=== PATIENT | male | born 1960 ===

== ENCOUNTER 2021-04-26 14:19 | Observation (INO) | payer MEDICAID ==
--- NOTE | 2021-04-26 16:16 | Emergency Department Report ---
ED Chest Pain HPI - General Chief Complaint: Chest Pain Stated Complaint: CHEST PAIN Time Seen by Provider: 04/26/21 16:03 Source: patient Mode of arrival: Wheelchair Limitations: No Limitations - History of Present Illness Initial Comments: 60-year-old male presents to the emergency department from home with a complaint of a 1 day history of midsternal to left-sided chest pain, shortness of breath and generalized weakness. He has a past medical history that includes hypertension, CHF, diabetes, coronary artery disease with questionable PA, previous PE no longer on anticoagulation. Patient is a tobacco smoker but denies any illicit drug use or alcohol abuse/dependence. He has not taken anything for symptoms prior to presentation. He rates his pain at a 10 out of 10 in intensity. No known aggravating or alleviating factors. No recent travel or sick contacts at home. - Related Data Allergies Allergy/AdvReac Type Severity Reaction Status Date / Time No Known Allergies Allergy Unverified 04/26/21 14:34 Heart Score - HEART Score History: Slightly suspicious EKG: Non-specific Age: 45-65 Risk factors: > 3 risk factors or hx of atherosclerotic disease Troponin: < normal limit HEART Score: 4 - EKG Read Time Time EKG Completed: 16:13 EKG Read Time: 16:14 ED Review of Systems ROS: Stated complaint: CHEST PAIN Other details as noted in HPI Comment: All other systems reviewed and negative Constitutional: weakness. denies: chills, fever Eyes: denies: eye pain, vision change ENT: denies: ear pain, throat pain Respiratory: shortness of breath. denies: orthopnea Cardiovascular: chest pain. denies: edema Gastrointestinal: denies: abdominal pain, vomiting Genitourinary: denies: dysuria, discharge Musculoskeletal: denies: back pain, joint swelling Skin: denies: rash, lesions Neurological: denies: headache, numbness ED Physical Exam - General Limitations: No Limitations - Other Other exam information: GENERAL: The patient is well-developed well-nourished. HENT: Normocephalic. Atraumatic. Patient has moist mucous membranes. EYES: Extraocular motions are intact. NECK: Supple. Trachea is midline. CHEST/LUNGS: Clear to auscultation. There is no respiratory distress noted. HEART/CARDIOVASCULAR: Regular. There is no tachycardia. There is no murmur. ABDOMEN: Abdomen is soft, nontender. Patient has normal bowel sounds. There is no abdominal distention. SKIN: Skin is warm and dry. NEURO: The patient is awake, alert, and oriented. The patient is cooperative. The patient has no focal neurologic deficits. Normal speech. MUSCULOSKELETAL: There is no tenderness or deformity. There is no limitation range of motion. ED Course Vital Signs 04/26/21 04/26/21 17:41 20:57 Temperature 68.2 F L 98.5 F Pulse Rate 108 H 95 H Respiratory 16 18 Rate Blood Pressure 172/84 156/108 O2 Sat by Pulse 94 95 Oximetry DENISE score - Denise Score Age > 65: (0) No Aspirin use within the Past 7 Days: (0) No 3 or more CAD Risk Factors: (1) Yes 2 or more Angina events in past 24 hrs: (1) Yes Known CAD with more than 50% Stenosis: (0) No Elevated Cardiac Markers: (0) No ST Deviation Greater than 0.5mm: (0) No DENISE Score: 2 ED Medical Decision Making - Lab Data Result diagrams: 04/26/21 16:45 04/26/21 16:45 Lab Results 04/26/21 04/26/21 04/26/21 Range/Units 16:45 16:45 16:45 WBC 6.5 (4.5-11.0) K/mm3 RBC 5.68 H (3.65-5.03) M/mm3 Hgb 15.0 (11.8-15.2) gm/dl Hct 47.4 H (35.5-45.6) % MCV 83 L (84-94) fl MCH 26 L (28-32) pg MCHC 32 (32-34) % RDW 15.0 (13.2-15.2) % Plt Count 206 (140-440) K/mm3 Lymph % (Auto) 21.1 (13.4-35.0) % [place] % (Auto) 13.1 H (0.0-7.3) % Eos % (Auto) 0.8 (0.0-4.3) % Baso % (Auto) 0.5 (0.0-1.8) % Lymph # (Auto) 1.4 (1.2-5.4) K/mm3 [place] # (Auto) 0.8 (0.0-0.8) K/mm3 Eos # (Auto) 0.0 (0.0-0.4) K/mm3 Baso # (Auto) 0.0 (0.0-0.1) K/mm3 Seg Neutrophils % 64.5 (40.0-70.0) % Seg Neutrophils # 4.2 (1.8-7.7) K/mm3 D-Dimer 331.86 H (0-234) ng/mlDDU Sodium 134 L (137-145) mmol/L Potassium 4.5 (3.6-5.0) mmol/L Chloride 93.6 L (98-107) mmol/L Carbon Dioxide 23 (22-30) mmol/L Anion Gap 22 mmol/L BUN 11 (9-20) mg/dL Creatinine 0.7 L (0.8-1.3) mg/dL Estimated GFR > 60 ml/min BUN/Creatinine Ratio 16 % Glucose 325 H (75-100) mg/dL Calcium 8.9 (8.4-10.2) mg/dL Total Bilirubin 0.70 (0.1-1.2) mg/dL AST 26 (5-40) units/L ALT 18 (7-56) units/L Alkaline Phosphatase 161 H (35-129) units/L Troponin T < 0.010 (0.00-0.029) ng/mL NT-Pro-B Natriuret Pep 127.2 (0-900) pg/mL Total Protein 7.5 (6.3-8.2) g/dL Albumin 3.8 L (3.9-5) g/dL Albumin/Globulin Ratio 1.0 % 04/26/21 Range/Units 19:25 WBC (4.5-11.0) K/mm3 RBC (3.65-5.03) M/mm3 Hgb (11.8-15.2) gm/dl Hct (35.5-45.6) % MCV (84-94) fl MCH (28-32) pg MCHC (32-34) % RDW (13.2-15.2) % Plt Count (140-440) K/mm3 Lymph % (Auto) (13.4-35.0) % [place] % (Auto) (0.0-7.3) % Eos % (Auto) (0.0-4.3) % Baso % (Auto) (0.0-1.8) % Lymph # (Auto) (1.2-5.4) K/mm3 [place] # (Auto) (0.0-0.8) K/mm3 Eos # (Auto) (0.0-0.4) K/mm3 Baso # (Auto) (0.0-0.1) K/mm3 Seg Neutrophils % (40.0-70.0) % Seg Neutrophils # (1.8-7.7) K/mm3 D-Dimer (0-234) ng/mlDDU Sodium (137-145) mmol/L Potassium (3.6-5.0) mmol/L Chloride (98-107) mmol/L Carbon Dioxide (22-30) mmol/L Anion Gap mmol/L BUN (9-20) mg/dL Creatinine (0.8-1.3) mg/dL Estimated GFR ml/min BUN/Creatinine Ratio % Glucose (75-100) mg/dL Calcium (8.4-10.2) mg/dL Total Bilirubin (0.1-1.2) mg/dL AST (5-40) units/L ALT (7-56) units/L Alkaline Phosphatase (35-129) units/L Troponin T < 0.010 (0.00-0.029) ng/mL NT-Pro-B Natriuret Pep (0-900) pg/mL Total Protein (6.3-8.2) g/dL Albumin (3.9-5) g/dL Albumin/Globulin Ratio % - EKG Data -: EKG Interpreted by Sc EKG shows normal: sinus rhythm, axis, intervals, QRS complexes, ST-T waves (Inverted T waves to the lateral leads) Rate: tachycardia (110 bpm) - EKG Data When compared to previous EKG there are: previous EKG unavailable Interpretation: other (Sinus tachycardia 110 bpm, normal axis, normal intervals, T wave inversion to the lateral leads. No ST elevation PA) - Radiology Data Radiology results: report reviewed CHEST 2 VIEWS INDICATION / CLINICAL INFORMATION: CP STUDY TIME: 1727 COMPARISON: None available. FINDINGS: SUPPORT DEVICES: None. HEART / MEDIASTINUM: No significant abnormality. LUNGS / PLEURA: No significant acute pulmonary or pleural abnormality. No pneumothorax. ADDITIONAL FINDINGS: No significant additional findings. CTA CHEST WITH IV CONTRAST INDICATION: CP, elevated dimer. TECHNIQUE: Axial CT images were obtained through the chest after injection of IV contrast. 3 plane MIP reconstructions were produced. All CT scans at this location are performed using CT dose reduction for ALARA by means of automated exposure control. COMPARISON: None available. FINDINGS: Pulmonary Arteries: No pulmonary emboli. Thoracic Aorta: No acute abnormality. Heart: Normal. Lungs: No acute air space or interstitial disease. Pleura: No pleural effusion. No pneumothorax. Lymph Nodes: No significant adenopathy. Additional Findings: None. Upper Abdomen: On the inferior most axial image there is subtle ill-defined hypodensity in the anterior right lobe of the liver measuring 3.6 cm. This may be an area of focal fat deposition but is incompletely included on this exam. Skeletal Structures: No significant osseous abnormality. IMPRESSION: 1. No CT evidence for pulmonary embolism. 2. No acute findings. - Medical Decision Making This patient presents with acute chest pain, shortness of breath, generalized weakness that started this morning. Heart and lung sounds are normal to auscultation and the patient does not appear in any respiratory distress. EKG does not show any morphology consistent with ST elevation myocardial infarction. Chest x-ray does not show any pneumonia, pleural effusions, pneumothorax, widened mediastinum, or any other acute process. Patient's labs have been mostly unremarkable thus far including CBC, metabolic panel, negative troponin, but the patient did have a slightly elevated and equivocal D-dimer level. For this reason he had a CT angiography of the chest that does not show any pulmonary embolism, dissection, or any other acute process. The patient has a moderate heart score of 4. For this reason the patient will be admitted to the hospital for further evaluation and treatment and was accepted for admission by the hospitalist, Dr. Stearns. Critical Care Time: No Critical care attestation.: If time is entered above; I have spent that time in minutes in the direct care of this critically ill patient, excluding procedure time. ED Disposition Clinical Impression: Acute chest pain, Hyperglycemia Hypertension Qualifiers: Hypertension type: primary hypertension Qualified Code(s): I10 - Essential (primary) hypertension Disposition: ADMITTED INPATIENT Is pt being admited?: Yes Condition: Serious Instructions: Chest Pain (ED), Hypertension (ED) Time of Disposition: 18:00
[2021-04-26 17:23] LABS: Alanine Aminotransferase 18 units/L (7-56); Albumin 3.8 g/dL (3.9-5); Blood Urea Nitrogen 11 mg/dL (9-20); Calcium 8.9 mg/dL (8.4-10.2); Hemolysis Index 29
[2021-04-26 17:27] LABS: BUN/Creatinine Ratio 16
[2021-04-26 17:32] LABS: Basophils % (Auto) 0.5 % (0.0-1.8); Eosinophils % (Auto) 0.8 % (0.0-4.3); Hematocrit 47.4 % (35.5-45.6); Lymphocytes # (Auto) 1.4 K/mm3 (1.2-5.4); Lymphocytes % (Auto) 21.1 % (13.4-35.0); Mean Corpuscular HGB Conc 32 % (32-34); Mean Corpuscular Volume 83 fl (84-94); Monocytes # (Auto) 0.8 K/mm3 (0.0-0.8); Monocytes % (Auto) 13.1 % (0.0-7.3); Platelet Count 206 K/mm3 (140-440); Red Blood Count 5.68 M/mm3 (3.65-5.03)
[2021-04-26] MEDS ORDERED: MORPHINE 4 MG/1 ML INJ IV ONE (17:55)
[2021-04-26] MEDS ORDERED: ONDANSETRON 4 MG/2 ML INJ IV ONE (17:56)
[2021-04-26] MEDS ORDERED: INSULIN REGULAR, HUMAN 100 UNITS/1 ML IV ONE (17:59)
[2021-04-26] MEDS ORDERED: ASPIRIN 81 MG TAB CHEW PO ONE (17:59)
--- NOTE | 2021-04-26 18:11 | XRay Report ---
CHEST 2 VIEWS INDICATION / CLINICAL INFORMATION: CP STUDY TIME: 1727 COMPARISON: None available. FINDINGS: SUPPORT DEVICES: None. HEART / MEDIASTINUM: No significant abnormality. LUNGS / PLEURA: No significant acute pulmonary or pleural abnormality. No pneumothorax. ADDITIONAL FINDINGS: No significant additional findings. Signer Name: Tristan Rothman MD Signed: 04/26/2021 6:06 PM Workstation Name: [id number]
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
[2021-04-26] MEDS ORDERED: ACETAMINOPHEN 325 MG TAB PO PRN (19:06)
[2021-04-26] MEDS ORDERED: ONDANSETRON 4 MG/2 ML INJ IV PRN (19:06)
--- NOTE | 2021-04-26 19:19 | Cat Scan Report ---
CTA CHEST WITH IV CONTRAST INDICATION: CP, elevated dimer. TECHNIQUE: Axial CT images were obtained through the chest after injection of IV contrast. 3 plane MIP reconstru ctions were produced. All CT scans at this location are performed using CT dose reduction for ALARA b y means of automated exposure control. COMPARISON: None available. FINDINGS: Pulmonary Arteries: No pulmonary emboli. Thoracic Aorta: No acute abnormality. Heart: Normal. Lungs: No acute air space or interstitial disease. Pleura: No pleural effusion. No pneumothorax. Lymph Nodes: No significant adenopathy. Additional Findings: None. Upper Abdomen: On the inferior most axial image there is subtle ill-defined hypodensity in the anteri or right lobe of the liver measuring 3.6 cm. This may be an area of focal fat deposition but is incom pletely included on this exam. Skeletal Structures: No significant osseous abnormality. IMPRESSION: 1. No CT evidence for pulmonary embolism. 2. No acute findings. Signer Name: Adi Pinedo MD Signed: 04/26/2021 7:14 PM Workstation Name: [id number]
[2021-04-26] MEDS ORDERED: oxyCODONE /ACETAMINOPHEN 5-325MG TAB PO PRN (19:33)
[2021-04-26] MEDS ORDERED: MORPHINE 2 MG/1 ML INJ IV PRN (19:33)
[2021-04-26] MEDS ORDERED: SODIUM CHLORIDE 0.9% 1000 ML 1,000 ML IV SCH (19:45)
[2021-04-26] MEDS: HEPARIN 5,000 UNIT/1 ML VIAL SUB-Q SCH (22:30)
[2021-04-26] MEDS ORDERED: DEXTROSE 50% IN WATER (25GM) 50 ML SYRINGE IV PRN (23:48)
[2021-04-26] MEDS ORDERED: hydrALAZINE 20 MG/1 ML INJ IV PRN (23:51)
[2021-04-26] MEDS ORDERED: DEXTROSE 10% *Hypoglycemia IV PRN (23:56)
[2021-04-27] MEDS: INSULIN LISPRO 100 UNIT/ML SUB-Q SCH ×4 (00:50→17:11)
[2021-04-27 05:27] LABS: Alanine Aminotransferase 16 units/L (7-56); Albumin 3.6 g/dL (3.9-5); BUN/Creatinine Ratio 16; Blood Urea Nitrogen 13 mg/dL (9-20); Calcium 8.8 mg/dL (8.4-10.2); Hemolysis Index 6
[2021-04-27] MEDS ORDERED: REGADENOSON 0.4 MG/5 ML INJ IV ONE (07:31)
--- NOTE | 2021-04-27 11:12 | Nuclear Medicine Report ---
APPROVED REPORT Exam: Nuclear Stress Test Indication: Chest pain BMI: 0 Stress Test Details HR Max Heart Rate (APMHR): 159 bpm Target HR (85% APMHR): 135 bpm BP ECG Resting ECG: Sinus Rhythm,non specific T wavechanges. Stress ECG: Sinus Rhythm ST Change: None Arrhythmia: None Recovery ECG: Sinus Rhythm Recovery ST Change: None Recovery Arrhythmia: None Clinical Reason for Termination: Completed protocol Stress Symptoms: None NM EXAM: Myocardial Perfusion REST/STRESS Imaging Protocol: Rest Tc-99m/Stress Tc-99m 1 day Resting Data Rest SPECT myocardial perfusion imaging was performed in supine position 45 minutes following the intravenous injection of 10 mCi of Tc-99m Myoview. Time of rest injection: 0700 Pharmacologic Stress Pharmacologic stress test was performed by injecting Regadenoson 0.4 mg IV push followed by the intravenous injection of 28 mCi of Tc-99m Myoview. Time of stress injection: 0925 Gated Stress SPECT was performed 30 minutes after stress injection. The images were gated to evaluate regional wall motion and calculate left ventricular ejection fraction. Study Quality Study: excellent Lung Uptake: Normal Study Data TID = 1.00. Perfusion Wall Motion The rest and stress images show normal left ventricular wall motion.Post stress LVEF was calculated lauren 69%.No wall motion abnormalities noted.Normal left ventricular size and function with no regional wall motion abnormalities. Nuclear Conclusion ECG Findings: negative for ischemia Clinical Findings: negative for ischemia Nuclear Findings: negative for ischemia Exercise Capacity: not assessed Left Ventricular Function: normal Risk Study: low Normal study. No scintigraphic evidence for myocardial ischemia or scar.
--- NOTE | 2021-04-27 11:39 | Electrocardiograph Report ---
[facility] Test Date: 2021-04-26 Test Time: 16:13:14 Pat Name: DAVONTE PATTON Department: Room: A458 1 Gender: M Song Lyricist: DEONDRE : 1960 Requested By: CLOTILDE LEWIS Order Number: [id number] Reading MD: Gerber Chapin Measurements Intervals [place] Rate: 110 P: 49 [place]: 158 QRS: 8 QRSD: 77 T: 104 QT: 333 QTc: 451 Interpretive Statements Sinus tachycardia Abnormal T, consider ischemia, lateral leads No previous ECG available for comparison Electronically Signed On 04-27-2021 11:39:49 EST by Gerber Chapin
[2021-04-27] MEDS: HEPARIN 5,000 UNIT/1 ML VIAL SUB-Q SCH (13:11)
--- NOTE | 2021-04-27 15:34 | Discharge Summary ---
Providers - Providers Date of Admission: 04/26/21 18:00 Date of discharge: 04/27/21 Attending physician: ELIZABETH VAUGHN 04/26/21 23:48 Consult to Dietitian/Nutrition [CONS] Routine Physician Instructions: Reason For Exam: Reason for Consult: Diet education Primary care physician: RESEARCH KENNEL SUPERVISOR Hospitalization Condition: Serious Hospital course: 60-year-old male with history of hypertension, type II DM diabetes, COPD and on home oxygen to 3 L comes in for left-sided chest pain of 3 days duration. Also lower extremity pain. Patient stated he has history of CHF. And history of coronary artery disease. Patient is a poor historian. Patient has clinical nasal cannula oxygen. Patient smokes over a pack a day. Alcohol occasionally. Did not take any medications prior to coming here. Not taking any medications very noncompliant. Assessment and Plan Advance Directives: Yes (Full code) VTE prophylaxis?: Chemical Plan of care discussed with patient/family: Yes - Patient Problems (1) Acute coronary syndrome Current Visit: Yes Status: Acute Plan to address problem: Stress test was negative (2) Hypertension Current Visit: Yes Status: Chronic Qualifiers: Hypertension type: primary hypertension Qualified Code(s): I10 - Essential (primary) hypertension Plan to address problem: We will have a comfortable tonsils Adjust medications (3) Chronic respiratory failure Current Visit: Yes Status: Chronic Qualifiers: Respiratory failure complication: hypoxia Qualified Code(s): J96.11 - Chronic respiratory failure with hypoxia Plan to address problem: Patient on 3 L nasal cannula oxygen at home (4) DVT prophylaxis Current Visit: Yes Status: Acute (5) Type 2 diabetes mellitus Current Visit: Yes Status: Chronic Qualifiers: Diabetes mellitus termite control technician insulin use: unspecified termite control technician insulin use status Plan to address problem: Continue home medications Coverage Check hemoglobin A1c (6) COPD (chronic obstructive pulmonary disease) Current Visit: Yes Status: Chronic Qualifiers: Chronic bronchitis type: unspecified Plan to address problem: Continue duo nebs on a as needed basis (7) Nicotine dependence Current Visit: Yes Status: Chronic Qualifiers: Nicotine product type: cigarettes Plan to address problem: Patient counseled about stopping smoking Time spent 10 minutes (8) Needs smoking cessation education Current Visit: Yes Status: Acute Plan to address problem: Smoking cessation education done Chantix nicotine patches and Effexor. Recommended Patient wants to think about it (9) DVT prophylaxis Current Visit: Yes Status: Acute Plan to address problem: On anticoagulation GI prophylaxis (10) Advance care planning Current Visit: Yes Status: Acute Plan to address problem: Dear education conducted, care plan discussed. Diagnosis discussed. Prognosis discussed. Patient is full code patient acknowledges understanding and agreement with care plan. +30 minutes. Disposition: 01 HOME / SELF CARE / HOMELESS Final Discharge Diagnosis (Prints w/discharge instructions): Acute coronary syndrome. Hypertension. Chronic respiratory failure. COPD - Discharge Diagnoses (1) Acute coronary syndrome Status: Acute (2) Hypertension Status: Chronic Qualifiers: Hypertension type: primary hypertension Qualified Code(s): I10 - Essential (primary) hypertension (3) Chronic respiratory failure Status: Chronic Qualifiers: Respiratory failure complication: hypoxia Qualified Code(s): J96.11 - Chronic respiratory failure with hypoxia (4) DVT prophylaxis Status: Acute (5) Type 2 diabetes mellitus Status: Chronic Qualifiers: Diabetes mellitus termite control technician insulin use: unspecified residential insulin use status (6) COPD (chronic obstructive pulmonary disease) Status: Chronic Qualifiers: Chronic bronchitis type: unspecified (7) Nicotine dependence Status: Chronic Qualifiers: Nicotine product type: cigarettes (8) Needs smoking cessation education Status: Acute (9) DVT prophylaxis Status: Acute (10) Advance care planning Status: Acute Core Measure Documentation - Palliative Care Palliative Care/ Comfort Measures: Not Applicable - Core Measures Any of the following diagnoses?: none Exam - Physical Exam Narrative exam: Patient is on 3 L nasal cannula oxygen - Constitutional Vitals: Temp Pulse Resp BP Pulse Ox 89 F L 89 20 137/86 98 04/27/21 12:22 04/27/21 12:22 04/27/21 12:22 04/27/21 12:22 04/27/21 12:22 General appearance: Present: no acute distress, well-nourished - EENT Eyes: Present: PERRL ENT: hearing intact, clear oral mucosa - Neck Neck: Present: supple, normal ROM - Respiratory Respiratory effort: normal Respiratory: bilateral: CTA - Cardiovascular Heart Sounds: Present: S1 & S2. Absent: rub, click - Extremities Extremities: pulses symmetrical, No edema Peripheral Pulses: within normal limits - Abdominal General gastrointestinal: Present: soft, non-tender, non-distended, normal bowel sounds Male genitourinary: Present: normal - Integumentary Integumentary: Present: clear, warm, dry - Musculoskeletal Musculoskeletal: gait normal, strength equal bilaterally - Psychiatric Psychiatric: appropriate mood/affect, intact judgment & insight - Neurologic Neurologic: CNII-XII intact, moves all extremities Plan Activity: no restrictions Diet: low fat, low cholesterol, low salt Follow up with: PRIMARY CARE, [Primary Care Provider] - 3-5 Days CLAUDIA CARRREA MD [Staff Physician] - 7 Days
[2021-04-27 18:19] VITALS: BP 137/93
== END 2021-04-27 19:26 | disposition home or self-care (01) ==
LOC: ED 14:19 → 4A 18:00
PROVIDERS: ADMIT Internal Medicine; ATTEND Internal Medicine
DX: I24.9 Acute ischemic heart disease, unspecified (principal); J96.11 Chronic respiratory failure with hypoxia; I10 Essential (primary) hypertension; E11.65 Type 2 diabetes mellitus with hyperglycemia; J44.9 Chronic obstructive pulmonary disease, unspecified; R07.89 Other chest pain; F17.210 Nicotine dependence, cigarettes, uncomplicated; Z79.899 Other long term (current) drug therapy; Z98.890 Other specified postprocedural states
CPT/HCPCS: 36415; 71046; 71275; 78452; 80053; 82962; 83880; 84484; 85025; 85379; 93005; 93010; 93017; 96372; 96374; 96375; 99285; 99406; A9502; G0378; J0360; J1644; J2270; J2405; J2785; Q9967; J1815